=== PATIENT | female | born 1995 | race American Indian/Alaskan Native ===

== ENCOUNTER 2017-10-27 23:15 | Emergency (ER) | payer MEDICAID, OTHER ==
[2017-10-27 23:42] VITALS: BP 125/66
== END 2017-10-27 23:45 | disposition left against medical advice (07) ==
LOC: ED 23:15
DX: H10.029 Other mucopurulent conjunctivitis, unspecified eye (principal); Z53.21 Procedure and treatment not carried out due to patient leaving prior to being seen by health care provider